=== PATIENT | male | born 1985 | race African-American/Black ===

== ENCOUNTER 2017-07-03 19:12 | Emergency (ER) | payer OTHER ==
--- NOTE | 2017-07-03 19:25 | PDOC ---
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 States that after he took that awkward step he has a sharp right inguinal pain with certain right leg movements. Denies mass, abdominal pain, testicular pain, fevers, chills, nausea , vomiting, diarrhea, cough, chest pain, or other sick symptoms. He took no medication for this pain and came straight to the ED. 07/03/17 19:44 Past History - Past Medical History Allergies/Adverse Reactions: Allergies Allergy/AdvReac Type Severity Reaction Status Date / Time apple Allergy Itching Verified 07/03/17 19:31 Home Medications: Ambulatory Orders Ibuprofen [Motrin -] 600 mg PO QID PRN #20 tablet 07/03/17 - Suicide/Smoking/Psychosocial Hx Smoking Status: No Smoking History: Never smoked Number of Cigarettes Smoked Daily: 0 Hx Alcohol Use: No Drug/Substance Use Hx: No Substance Use Type: None Review of Systems - Review of Systems Constitutional: No: Chills, Diaphoresis, Fever HEENTM: No: Blurred Vision Respiratory: No: Cough, Orthopnea, Shortness of Breath, Wheezing Cardiac (ROS): No: Chest Pain, Edema, Lightheadedness ABD/GI: No: Diarrhea, Nausea, Poor Appetite, Vomiting : No: Dysuria, Discharge, Hematuria, Incontinence, Pain, Urgency, Testicular Pain Neurological: No: Numbness, Paresthesia *Physical Exam - Physical Exam General Appearance: Yes: Nourished, Appropriately Dressed. No: Apparent Distress HEENT: positive: EOMI, FLY, Normal ENT Inspection, Normal Voice Neck: positive: Trachea midline, Normal Thyroid, Supple. negative: Tender, Rigid Respiratory/Chest: positive: Lungs Clear, Normal Breath Sounds. negative: Chest Tender, Respiratory Distress Cardiovascular: positive: Regular Rhythm, Regular Rate. negative: Edema, Murmur Gastrointestinal/Abdominal: positive: Normal Bowel Sounds, Flat, Soft. negative : Tender, Increased Bowel Sounds, Decreased BS, Protuberent, Hernia, Mass Male Genitalia: positive: normal genitalia Extremity: positive: Normal Capillary Refill, Normal Inspection. 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 No testicular tenderness, swelling, or sign of hernia. Given 800 mg once po ibuprofen here and will write for 20 pills of 600 mg Q6 and referral for umair who he has seen in the past if the pain does not improve. 07/03/17 19:50 *DC/Admit/Observation/Transfer Diagnosis at time of Disposition: Strain of muscle of right groin region - Discharge Dispostion Disposition: HOME Condition at time of disposition: Good Admit: No - Prescriptions Prescriptions: Ibuprofen [Motrin -] 600 mg PO QID PRN #20 tablet PRN Reason: Pain Level 1 - 3 - Referrals - Patient Instructions Printed Discharge Instructions: DI for Muscle Strain Additional Instructions: You likely have a strain of your right inguinal ligament or muscle around that same area. It should get better with rest, ibuprofen, and heat. Please follow up with Dr. Aguirre next week. Please return to the ED if the pain gets worse despite medication. - Post Discharge Activity
[2017-07-03 19:31] VITALS: BP 130/71; PULSE 100; TEMP 98.2; BMI 30.9
[2017-07-03] MEDS ORDERED: IBUPROFEN 400 MG TABLET (FP) PO ONE ×2 (19:43→19:51)
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
== END 2017-07-03 20:05 | disposition home or self-care (01) ==
LOC: JER 19:12
DX: S39.011A Strain of muscle, fascia and tendon of abdomen, initial encounter (principal); X50.1XXA Overexertion from prolonged static or awkward postures, initial encounter; Y93.89 Activity, other specified; Y92.098 Other place in other non-institutional residence as the place of occurrence of the external cause; Y99.0 Civilian activity done for income or pay
CPT/HCPCS: 99281-25

== ENCOUNTER 2018-03-29 10:00 | Emergency (ER) | payer OTHER ==
[2018-03-29 10:13] VITALS: BP 185/91; PULSE 67; TEMP 98.8; BMI 31.5
[2018-03-29] MEDS ORDERED: DIPHTH,PERTUSS(ACELL),TET 0.5 ML DISP.SYRIN IM ONE (10:23)
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
== END 2018-03-29 10:56 | disposition home or self-care (01) ==
LOC: JERFT 10:00
PROC: 3E0234Z Introduction of Serum, Toxoid and Vaccine into Muscle, Percutaneous Approach (ICD-10-PCS; principal; 2018-03-29)
PROC: 0HQFXZZ Repair Right Hand Skin, External Approach (ICD-10-PCS; 2018-03-29)
PROC: 3E0234Z Introduction of Serum, Toxoid and Vaccine into Muscle, Percutaneous Approach (ICD-10-PCS; 2018-03-29)
DX: S61.411A Laceration without foreign body of right hand, initial encounter (principal); V68.4XXA Person boarding or alighting a heavy transport vehicle injured in noncollision transport accident, initial encounter; Y93.89 Activity, other specified; Y99.0 Civilian activity done for income or pay; Y92.89 Other specified places as the place of occurrence of the external cause
CPT/HCPCS: 90715; 99281-25

== ENCOUNTER 2018-06-17 13:25 | Emergency (ER) | payer BC, OTHER ==
[2018-06-17 13:43] VITALS: BP 132/82; PULSE 69; TEMP 98.2; BMI 30.3
--- NOTE | 2018-06-17 14:49 | PDOC ---
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 States 4 days ago temperature max 101 but since then has resolved. States had prolonged general malaise and fatigue. Denies sore throat or earache pain or fevers currently. Has been using [id number] medications with some good results. Was concerned about persistent tiredness. States young daughter was ill with same type of thickness one week previous. Denies chest pain, palpitations, shortness of breath but states had some strange tingling sensation to his left arm spontaneously resolved. 06/17/18 14:49 06/17/18 15:17 Occurred: reports: last week Severity: reports: mild, moderate Past History - Travel Traveled outside of the country in the last 30 days: No Close contact w/someone who was outside of country & ill: No - Past Medical History Allergies/Adverse Reactions: Allergies Allergy/AdvReac Type Severity Reaction Status Date / Time apple Allergy Itching Verified 06/17/18 13:39 Home Medications: Ambulatory Orders NK [No Known Home Medication] 06/17/18 COPD: No Other medical history: DENIES. - Suicide/Smoking/Psychosocial Hx Smoking Status: No Smoking History: Never smoked Have you smoked in the past 12 months: No Number of Cigarettes Smoked Daily: 0 Hx Alcohol Use: No Drug/Substance Use Hx: No Substance Use Type: None Trauma Specific PMHX - Complaint Specific PMHX Back Injury: No Neck Injury: No Review of Systems - Review of Systems Able to Perform ROS?: Yes Is the patient limited Slovak proficient: Yes Constitutional: Yes: Symptoms Reported, See HPI, Chills, Fever, Malaise HEENTM: Yes: Symptoms Reported, See HPI, Nose Congestion. No: Throat Swelling Respiratory: Yes: Symptoms reported, See HPI, Cough ABD/GI: No: Symptoms Reported Musculoskeletal: Yes: Symptoms Reported, See HPI, Muscle Pain (left forearm) Neurological: Yes: See HPI. No: Symptoms reported, Headache, Numbness, Paresthesia All Other Systems: Reviewed and Negative *Physical Exam - Vital Signs Last Vital Signs Temp Pulse Resp BP Pulse Ox 98.2 F 69 18 132/82 96 06/17/18 13:39 06/17/18 13:39 06/17/18 13:39 06/17/18 13:39 06/17/18 13:39 - Physical Exam General Appearance: Yes: Nourished, Appropriately Dressed, Apparent Distress, Mild Distress HEENT: positive: FLY, TMs Normal, Pharynx Normal, Rhinorrhea Neck: positive: Supple, Lymphadenopathy (R), Lymphadenopathy (L). negative: Tender Respiratory/Chest: positive: Lungs Clear, Normal Breath Sounds. negative: Chest Tender Gastrointestinal/Abdominal: positive: Soft. 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 We'll continue conservative measures as there is no indication of bacterial infection and possible resolved influenza *DC/Admit/Observation/Transfer Diagnosis at time of Disposition: Upper respiratory infection, viral - Discharge Dispostion Disposition: HOME Condition at time of disposition: Stable Decision to Admit order: No - Referrals Referrals: Huang Cerda MD [Primary Care Provider] - - Patient Instructions Printed Discharge Instructions: DI for Viral Upper Respiratory Infection -- Adult Additional Instructions: Rest, drink lots of fluids: Teas, water, soups, Pedialyte Saltwater gargles Steamy showers/seem to face break up mucus Avoid contact with others until fevers and cough resolved Lots of handwashing and good hygiene Continue wkhb-eiu-[id number] medications for symptomatic relief Tylenol or Motrin for fever and pain Followup with private physician in one to 2 days as needed Return to emergency department for worsened symptoms, fevers, dehydration - Post Discharge Activity Forms/Work/School Notes: Back to Work
--- NOTE | 2018-06-18 12:53 | EKG ---
Test Reason : Blood Pressure : / mmHG Vent. Rate : 067 BPM Atrial Rate : 067 BPM P-R Int : 152 ms QRS Dur : 086 ms QT Int : 400 ms P-R-T Axes : 013 000 -01 degrees QTc Int : 422 ms NORMAL SINUS RHYTHM NORMAL ECG WHEN COMPARED WITH ECG OF 21-JAN-2018 10:36, NO SIGNIFICANT CHANGE WAS FOUND Confirmed by MD SALAS MOYSES ([id number]) on 06/18/2018 12:52:32 PM Referred By: Confirmed By:ELIO SALAS MD
== END 2018-06-17 15:33 | disposition home or self-care (01) ==
LOC: JERFT 13:25
DX: J06.9 Acute upper respiratory infection, unspecified (principal); B97.89 Other viral agents as the cause of diseases classified elsewhere
CPT/HCPCS: 93005; 93010; 99281-25

== ENCOUNTER 2019-01-15 20:23 | Emergency (ER) | payer SELFPAY ==
[2019-01-15 20:28] VITALS: BP 122/89; PULSE 85; TEMP 98.2; BMI 29.0
[2019-01-15] MEDS ORDERED: IBUPROFEN 400 MG TABLET (FP) PO ONE ×2 (20:37→20:40)
--- NOTE | 2019-01-15 20:41 | PDOC ---
History of Present Illness - General Chief Complaint: Pain Stated Complaint: LEFT HAND UNJURY Time Seen by Provider: 01/15/19 20:31 History Source: Patient Exam Limitations: No Limitations Past History - Past Medical History Allergies/Adverse Reactions: Allergies Allergy/AdvReac Type Severity Reaction Status Date / Time apple Allergy Itching Verified 01/15/19 20:35 Home Medications: Ambulatory Orders Oxycodone HCl/Acetaminophen [Percocet 5-325 mg Tablet] 1 tab PO Q4H PRN #20 tablet MDD 6 01/15/19 COPD: No - Suicide/Smoking/Psychosocial Hx Smoking Status: No Smoking History: Never smoked Have you smoked in the past 12 months: No Number of Cigarettes Smoked Daily: 0 Hx Alcohol Use: No Drug/Substance Use Hx: No Substance Use Type: None Trauma Specific PMHX - Complaint Specific PMHX Back Injury: No Neck Injury: No *Physical Exam - Vital Signs Last Vital Signs Temp Pulse Resp BP Pulse Ox 98.2 F 85 20 122/89 100 01/15/19 20:24 01/15/19 20:24 01/15/19 20:24 01/15/19 20:24 01/15/19 20:24 - Physical Exam General Appearance: No: Apparent Distress Extremity: positive: Other (+swelling and TTP along lateral aspect of L hand, TTP along L 4th-5th MCP and metacarpals, no pain along L wrist, FROM of L wrist , no snuffbox tenderness, LUE neurovasculary intact) Integumentary: positive: Swelling. negative: Ecchymosis, Bruising Neurologic: positive: Alert, Normal Mood/Affect Procedures - Splinting Splint Location: Left: Hand Pre-Proc Neuro Vasc Exam: normal Hand-Made Type: orthoglass Splint Type: Yes: Ulnar Post-Proc Neuro Vasc Exam: normal Eugenio Bandage: yes ED Treatment Course - RADIOLOGY Radiology Studies Ordered: Category Date Time Status HAND- LEFT [RAD] Stat Radiology 01/15/19 20:37 Ordered Medical Decision Making - Medical Decision Making 33 y/o YFD, no sig pmh presents with L hand trauma from today. Was trying to open an engine door (states the knob can be tricky to open) and while trying to yank it open, hit this L hand against back of wall. Denies other trauma, numbness, tingling Plan: Motrin, L hand xray to r/o fracture 01/15/19 20:39 L hand xray shows 5th metacarpal head fracture Ulnar gutter splint placed 01/15/19 21:21 *DC/Admit/Observation/Transfer Diagnosis at time of Disposition: Fracture, metacarpal Qualifiers: Encounter type: initial encounter Metacarpal bone: fifth Fracture type: closed Metacarpal location: other portion of metacarpal Fracture alignment: displaced Laterality: left Qualified Code(s): S62.397A - Other fracture of fifth metacarpal bone, left hand, initial encounter for closed fracture - Discharge Dispostion Disposition: HOME Condition at time of disposition: Stable - Prescriptions Prescriptions: Oxycodone HCl/Acetaminophen [Percocet 5-325 mg Tablet] 1 tab PO Q4H PRN #20 tablet MDD 6 PRN Reason: Severe Pain - Referrals Referrals: Glen Camarillo MD [Staff Physician] - Call tomorrow - Patient Instructions Printed Discharge Instructions: DI for Boxer's Fracture Additional Instructions: Thank you for choosing [facility]. It was a pleasure taking care of you. You may take Motrin 600 mg every 6 hours by mouth as needed for mild to moderate pain. Take Motrin with food. Take Percocet as needed for severe pain. This medication can make you constipated for which you may take over the counter Senna tablets as needed. This medication can also make you drowsy so please be cautious with driving or performing heavy physical work. Keep splint dry Follow-up with orthopedic doctor tomorrow Return to the Emergency Department if your symptoms worsen or persist or have other concerning symptoms. - Post Discharge Activity
== END 2019-01-15 21:32 | disposition home or self-care (01) ==
LOC: JERFT 20:23
PROC: 2W3DX1Z Immobilization of Left Lower Arm using Splint (ICD-10-PCS; principal; 2019-01-15)
DX: S62.397A Other fracture of fifth metacarpal bone, left hand, initial encounter for closed fracture (principal); W22.8XXA Striking against or struck by other objects, initial encounter; Y93.89 Activity, other specified; Y92.89 Other specified places as the place of occurrence of the external cause; Y99.0 Civilian activity done for income or pay
CPT/HCPCS: 73130-TC-LT-FY; 99282-25

== ENCOUNTER 2020-02-28 20:43 | Emergency (ER) | payer BC ==
[2020-02-28 20:57] VITALS: BP 138/92; PULSE 73; TEMP 98; BMI 30.3
--- OUTSIDE RECORDS SUMMARY | 2020-02-28 20:58 | XMS ---
:1985 Author Organization [facility] Care Team Providers Name Role Phone .ALISON Brennan, LUIS Unavailable Unavailable Re-disclosure Warning The records that you are about to access may contain information from federally- assisted alcohol or drug abuse programs. If such information is present, then the following federally mandated warning applies: This information has been disclosed to you from records protected by federal confidentiality rules (42 CFR part 2). The federal rules prohibit you from making any further disclosure of this information unless further disclosure is expressly permitted by the written consent of the person to whom it pertains or as otherwise permitted by 42 CFR part 2. A general authorization for the release of medical or other information is NOT sufficient for this purpose. The Federal rules restrict any use of the information to criminally investigate or prosecute any alcohol or drug abuse patient.The records that you are about to access may contain highly sensitive health information, the redisclosure of which is protected by Article 27-F of the [facility] Public Health law. If you continue you may haveaccess to information: Regarding HIV / AIDS; Provided by facilities licensed or operated by the [facility] Office of Mental Health; or Provided by the [facility] Office for People With Developmental Disabilities. If such information is present, then the following [facility] mandated warning applies: This information has been disclosed to you from confidential records which are protected by state law. State law prohibits you from making any further disclosure of this information without the specific written consent of the person to whom it pertains, or as otherwise permitted by law. Any unauthorized further disclosure in violation of state law may result in a fine or long term sentence or both. A general authorization for the release of medical or other information is NOT sufficient authorization for further disclosure. Encounters Encounter Providers Location Date Indications Data Source(s ) Outpatient Attender: LUIS Roberts 10/09/2019 [facility]imm[facility] 11:21:00 [facility] LAdmitter: LUIS SMITH LReferrer: LUIS Brennan Insurance Providers Payer name Policy type Policy ID Covered Covered democrat's Policy P karolyn / Coverage democrat ID relationship to Silver Inf ormation type silver BC PPO [id number] SP [id number] O BLUE CROSS O [id number] 01 [id number] SELF PAY SP INSURANCE Problems, Conditions, and Diagnoses Code Display Name Description Problem Type Effective Data Sour ce(s) Dates Z20.828 Contact with and CONTACT W AND Diagnosis 10/09/2019 [facility] (suspected) EXPOSURE TO OTH 11:21:00 AM Medical Center exposure to other VIRAL COMMUNICABLE EDT viral communicable DISEASES diseases Results ID Date Data Source [id number] 10/09/2019 11:27:00 AM EDT [facility] Name Value Range Interpretation Code Description Data Ana rce(s) Supporting Document(s ) COV2 [facility] This lab [facility] and reported by [facility]. ID Date Data Source [id number] 10/09/2019 11:27:00 AM EDT [facility] Name Value Range Interpretation Description Data Sup porting Code Source(s) Document(s ) UNK Not Detected <content [facility] styleCode="[facility] ">SARS-COV-2 Center RNA </content>Not Detected <content styleCode="Ital ics"> (Not Detected )</content> Procedure Social History Code Duration Value Status Description Data Source(s ) Smoking Unknown if ever completed Unknown if ever Jose Carlos smoked smoked [facility]
--- NOTE | 2020-02-28 22:23 | PDOC ---
History of Present Illness - General Chief Complaint: Sore Throat Stated Complaint: SORE THROAT Time Seen by Provider: 02/28/20 20:58 - History of Present Illness Initial Comments: 02/28/20 22:21 35-year-old male no comorbidities presents for sore throat x2 days no systemic symptoms states he has a feeling of something stuck in his throat. No retained foreign bodies or concern for food being stuck there it is just the feeling he describes. Past History - Medical History Allergies/Adverse Reactions: Allergies Allergy/AdvReac Type Severity Reaction Status Date / Time apple Allergy Itching Verified 01/15/19 20:35 Home Medications: Ambulatory Orders Oxycodone HCl/Acetaminophen [Percocet 5-325 mg Tablet] 1 tab PO Q4H PRN #20 tablet MDD 6 01/15/19 COPD: No - Psycho-Social/Smoking History Smoking Status: No Smoking History: Current some day smoker Have you smoked in the past 12 months: Yes Number of Cigarettes Smoked Daily: 0 Information on smoking cessation initiated: Yes - Substance Abuse Hx (Audit-C & DAST Scrn) How often the patient has a drink containing alcohol: Never Score: In Men: 4 or > Positive; In Women: 3 or > Positive: 0 Screen Result (Pos requires Nsg. Audit-10AR): Negative Review of Systems - Review of Systems Constitutional: No: Fever HEENTM: Yes: Throat Pain *Physical Exam - Vital Signs Last Vital Signs Temp Pulse Resp BP Pulse Ox 98.0 F 73 20 138/92 97 02/28/20 20:53 02/28/20 20:53 02/28/20 20:53 02/28/20 20:53 02/28/20 20:53 - Physical Exam 02/28/20 22:22 HEAD: NC/AT EYES: Conjuntiva clear Ears: Canals and TM's normal NOSE: No d/c THROAT: Moist mucous membrances, oral pharanx erythemic without exudate, uvula midline NECK: Supple without adenopathy CARDIAC: S1 S2 LUNGS: CTA Full and Equal breath sounds ABDOMEN: Soft NT ND MS: Full ROM in all joints without edema NEUROLOGIC: No gross sensory or motor deficits, NVID SKIN: Normal color and temperature no lesions or rashes ED Treatment Course - RADIOLOGY Radiology Studies Ordered: Category Date Time Status NECK SOFT TISSUE [RAD] Stat Radiology 02/28/20 21:02 Taken Medical Decision Making - Medical Decision Making 02/28/20 22:22 Normal soft tissue of the neck and negative strep test most likely a viral pharyngitis will have patient follow-up with ENT I have reviewed the pathophysiology with the patient. They are in agreement with the treatment plan all questions were answered to their satisfaction. Understanding for follow-up without fail was also conveyed to the patient. Again they are in agreement. Discharge - Discharge Information Problems reviewed: Yes Clinical Impression/Diagnosis: Sore throat Condition: Stable Disposition: HOME - Admission No - Follow up/Referral Referrals: Kev Edwards MD [Staff Physician] - - Patient Discharge Instructions Additional Instructions: Tylenol and Motrin for any discomfort. Rapid strep is negative. Culture was sent. Your soft tissue x-ray of the neck did not show any foreign bodies. Return to the emergency room for worsening symptoms at any time and without fail follow-up with ear nose and throat doctor in 1 to 2 days for further evaluation and treatment options. - Post Discharge Activity
== END 2020-02-28 23:06 | disposition home or self-care (01) ==
LOC: JERFT 20:43
DX: R07.0 Pain in throat (principal)
CPT/HCPCS: 70360-TC-FY; 87070; 87077; 87880; 99284-25

== ENCOUNTER 2020-07-25 14:57 | Emergency (ER) | payer BC, OTHER ==
[2020-07-25 15:29] VITALS: BP 122/75; PULSE 80; TEMP 98.1; BMI 30.9
[2020-07-25] MEDS ORDERED: IBUPROFEN 400 MG TABLET (FP) PO ONE ×2 (15:47→15:53)
[2020-07-25] MEDS ORDERED: METHOCARBAMOL 500 MG TABLET PO ONE (15:47)
[2020-07-25] MEDS ORDERED: METHOCARBAMOL 500 MG TABLET ONE (15:52)
== END 2020-07-25 15:56 | disposition home or self-care (01) ==
LOC: JERFT 14:57 → JER 14:57 → JERFT 15:56
DX: S39.012A Strain of muscle, fascia and tendon of lower back, initial encounter (principal)
CPT/HCPCS: 99283-25

== ENCOUNTER 2020-07-30 18:05 | Emergency (ER) | payer BC | END 2020-07-30 18:12 | disposition home or self-care (01) | LOC: JVIRT 18:05 | DX: Z11.52 Encounter for screening for COVID-19 (principal) | CPT/HCPCS: C9803; G2251-GT; U0003 ==

== ENCOUNTER 2020-08-05 10:52 | Emergency (ER) | payer BC | END 2020-08-05 12:24 | disposition home or self-care (01) | LOC: JVIRT 10:52 | DX: Z20.822 Contact with and (suspected) exposure to COVID-19 (principal) | CPT/HCPCS: 36415; 86769; C9803; G2251-GT; U0003 ==

== ENCOUNTER 2021-02-19 23:29 | Emergency (ER) | payer OTHER ==
[2021-02-19 23:43] VITALS: BP 125/82; PULSE 87; TEMP 98; BMI 30.3
[2021-02-20] MEDS ORDERED: LIDOCAINE 5% TOPICAL PATCH TP ONE (00:30)
[2021-02-20] MEDS ORDERED: KETOROLAC TROMETHAMINE 30 MG/1 ML VIAL IM ONE (00:30)
[2021-02-20] MEDS ORDERED: KETOROLAC TROMETHAMINE 30 MG/1 ML VIAL ONE (00:37)
[2021-02-20] MEDS ORDERED: LIDOCAINE 5% TOPICAL PATCH ONE (00:37)
[2021-02-20] MEDS ORDERED: LIDOCAINE PATCH REMOVAL MC SCH (22:00)
== END 2021-02-20 00:48 | disposition home or self-care (01) ==
LOC: JER 23:29
PROC: 3E0233Z Introduction of Anti-inflammatory into Muscle, Percutaneous Approach (ICD-10-PCS; principal; 2021-02-20)
DX: S39.012A Strain of muscle, fascia and tendon of lower back, initial encounter (principal); X50.0XXA Overexertion from strenuous movement or load, initial encounter; Y92.9 Unspecified place or not applicable
CPT/HCPCS: 99283-25

== ENCOUNTER 2021-10-04 20:10 | Emergency (ER) | payer OTHER ==
[2021-10-04 20:19] VITALS: BP 146/72; PULSE 72; TEMP 98.6; BMI 30.9
[2021-10-04] MEDS ORDERED: KETOROLAC TROMETHAMINE 30 MG/1 ML VIAL IM ONE (20:48)
[2021-10-04] MEDS ORDERED: KETOROLAC TROMETHAMINE 30 MG/1 ML VIAL ONE (20:55)
== END 2021-10-04 21:13 | disposition home or self-care (01) ==
LOC: JERFT 20:10
PROC: 3E0234Z Introduction of Serum, Toxoid and Vaccine into Muscle, Percutaneous Approach (ICD-10-PCS; principal; 2021-10-04)
DX: M54.50 Low back pain, unspecified (principal)
CPT/HCPCS: 99284-25

== ENCOUNTER 2022-01-16 17:39 | Emergency (ER) | payer BC, OTHER ==
[2022-01-16 18:19] VITALS: BP 124/81; PULSE 76; RESP 18; TEMP 97; BMI 30.9
[2022-01-16 18:47] LABS: HEMATOCRIT 43.6 % (35.4-49); HEMOGLOBIN 14.7 GM/dL (11.7-16.9); MCHC 33.8 g/dl (32.0-35.9); MEAN CELL VOLUME 91.8 fl (80-96); MEAN PLT VOLUME 8.3 fl (7.5-11.1); MONO % 11.4 % (3.8-10.2); NEUT % 46.6 % (42.8-82.8); PLATELET COUNT 240 10^3/uL (134-434); RBC 4.75 M/mm3 (4.00-5.60); RDW 12.9 % (11.9-15.9)
[2022-01-16 19:03] LABS: ALBUMIN 4.2 g/dl (3.4-5.0); BLOOD UREA NITROGEN 9.8 mg/dL (7-18); CALCIUM 9.2 mg/dL (8.5-10.1)
[2022-01-16 19:06] LABS: CREATININE 0.8 mg/dL (0.55-1.3)
[2022-01-16 19:08] LABS: BILIRUBIN,TOTAL 0.3 mg/dL (0.2-1); TOT PROT 7.7 g/dl (6.4-8.2)
[2022-01-16] MEDS ORDERED: CEFTRIAXONE 500 MG in DEXTROSE 5%-WATER - 50 ML IVPB ONE (19:21)
[2022-01-16] MEDS ORDERED: cefTRIAXone SODIUM 1 GM VIAL ONE (20:07)
[2022-01-16] MEDS ORDERED: CEFTRIAXONE 1,000 MG in DEXTROSE 5%-WATER - 50 ML IVPB ONE (20:10)
[2022-01-16 20:11] LABS: PH,URINE 6.5 (5.0-8.0); URINE APPEARANCE CLEAR; URINE BILIRUBIN NEGATIVE (NEGATIVE); URINE COLOR YELLOW; URINE GLUCOSE (UA) NEGATIVE (NEGATIVE); URINE KETONE NEGATIVE (NEGATIVE); URINE LEUK ESTERASE NEGATIVE (NEGATIVE); URINE NITRITE NEGATIVE (NEGATIVE); URINE PROTEIN NEGATIVE (NEGATIVE); URINE UROBILINOGEN 0.2 mg/dL (0.2-1.0)
== END 2022-01-16 20:59 | disposition home or self-care (01) ==
LOC: JER 17:39
DX: N45.1 Epididymitis (principal)
CPT/HCPCS: 36415; 76870-TC; 80053; 81003; 85025; 87086; 87491; 87591; 99284-25

== ENCOUNTER 2022-07-05 11:35 | Emergency (ER) | payer OTHER, BC ==
[2022-07-05 11:45] VITALS: BP 120/81; PULSE 69; RESP 18; TEMP 97.6; BMI 31.6
[2022-07-05] MEDS ORDERED: ACETAMINOPHEN 500 MG TABLET (FP) PO ONE (12:48)
[2022-07-05] MEDS ORDERED: ACETAMINOPHEN 500 MG TABLET (FP) ONE (12:50)
== END 2022-07-05 13:12 | disposition home or self-care (01) ==
LOC: JERFT 11:35
DX: S61.411A Laceration without foreign body of right hand, initial encounter (principal); W26.0XXA Contact with knife, initial encounter
CPT/HCPCS: 99283-25

== ENCOUNTER 2022-07-13 11:51 | Emergency (ER) | payer BC, OTHER ==
[2022-07-13 11:57] VITALS: BP 131/77; PULSE 71; RESP 17; TEMP 98.1; BMI 31.6
== END 2022-07-13 12:35 | disposition home or self-care (01) ==
LOC: JERFT 11:51
DX: S61.411A Laceration without foreign body of right hand, initial encounter (principal); Y99.9 Unspecified external cause status; Z48.02 Encounter for removal of sutures
CPT/HCPCS: 99281-25

== ENCOUNTER 2022-09-17 18:22 | Emergency (ER) | payer OTHER ==
[2022-09-17 18:31] VITALS: BP 124/83; PULSE 64; RESP 20; TEMP 98.3; BMI 30.3
[2022-09-17] MEDS ORDERED: NAPROXEN 500 MG TABLET PO ONE (19:21)
[2022-09-17] MEDS ORDERED: NAPROXEN 500 MG TABLET ONE (19:29)
== END 2022-09-17 19:30 | disposition home or self-care (01) ==
LOC: JERFT 18:22 → JER 18:22 → JERFT 19:30
DX: M54.6 Pain in thoracic spine (principal); X58.XXXA Exposure to other specified factors, initial encounter; Y99.0 Civilian activity done for income or pay
CPT/HCPCS: 99283-25

== ENCOUNTER 2022-12-19 10:05 | Emergency (ER) | payer OTHER ==
[2022-12-19 10:33] VITALS: BP 127/79; PULSE 80; RESP 18; TEMP 98; BMI 30.3
[2022-12-19] MEDS ORDERED: KETOROLAC TROMETHAMINE 30 MG/1 ML VIAL IM ONE (10:35)
[2022-12-19] MEDS ORDERED: KETOROLAC TROMETHAMINE 30 MG/1 ML VIAL ONE (10:38)
== END 2022-12-19 10:42 | disposition home or self-care (01) ==
LOC: JER 10:05 → JERFT 10:05
PROC: 3E0233Z Introduction of Anti-inflammatory into Muscle, Percutaneous Approach (ICD-10-PCS; principal; 2022-12-19)
DX: M54.50 Low back pain, unspecified (principal)
CPT/HCPCS: 99284-25

== ENCOUNTER 2023-03-16 10:30 | Emergency (ER) | payer OTHER ==
[2023-03-16 11:07] VITALS: BP 137/87; PULSE 65; RESP 18; TEMP 98.6; BMI 30.3
[2023-03-16] MEDS ORDERED: LIDOCAINE 5% TOPICAL PATCH TP ONE (11:21)
[2023-03-16] MEDS ORDERED: KETOROLAC TROMETHAMINE 30 MG/1 ML VIAL IM ONE (11:21)
[2023-03-16] MEDS ORDERED: MAG HYDROX/AL HYDROX/SIMETH 30 ML UNIT-DOSE CUP PO ONE (11:22)
[2023-03-16] MEDS ORDERED: LIDOCAINE 5% TOPICAL PATCH ONE (11:29)
[2023-03-16] MEDS ORDERED: KETOROLAC TROMETHAMINE 30 MG/1 ML VIAL ONE (11:29)
[2023-03-16] MEDS ORDERED: MAG HYDROX/AL HYDROX/SIMETH 30 ML UNIT-DOSE CUP ONE (11:29)
[2023-03-16] MEDS ORDERED: LIDOCAINE PATCH REMOVAL MC SCH (22:00)
== END 2023-03-16 11:59 | disposition home or self-care (01) ==
LOC: JERFT 10:30
PROC: 3E0233Z Introduction of Anti-inflammatory into Muscle, Percutaneous Approach (ICD-10-PCS; principal; 2023-03-16)
DX: M54.50 Low back pain, unspecified (principal); M54.2 Cervicalgia; S39.012A Strain of muscle, fascia and tendon of lower back, initial encounter; X50.0XXA Overexertion from strenuous movement or load, initial encounter; Y99.0 Civilian activity done for income or pay
CPT/HCPCS: 99284-25

== ENCOUNTER 2024-01-28 09:27 | Emergency (ER) | payer OTHER ==
[2024-01-28 09:36] VITALS: BP 150/97; PULSE 85; RESP 18; TEMP 98.6; BMI 28.5
== END 2024-01-28 11:02 | disposition home or self-care (01) ==
LOC: JERFT 09:27 → JER 09:27 → JERFT 11:02
DX: S39.012A Strain of muscle, fascia and tendon of lower back, initial encounter (principal); X50.1XXA Overexertion from prolonged static or awkward postures, initial encounter
CPT/HCPCS: 99283-25

== ENCOUNTER 2024-09-03 16:25 | Emergency (ER) | payer OTHER ==
[2024-09-03 16:36] VITALS: BP 135/91; PULSE 64; RESP 18; TEMP 98.6; BMI 29.8
[2024-09-03 18:12] LABS: ABSOLUTE IMMATURE GRANULOCYTES 0.01 x10^3/uL (0.0-0.031); BASOPHILS # 0.06 x10^3/uL (0.01-0.08); EOSINOPHIL % 1.4 % (0.8-7.0); EOSINOPHILS # 0.07 x10^3/uL (0.04-0.54); HEMATOCRIT 48.7 % (40.1-51.0); HEMOGLOBIN 15.8 g/dL (13.7-17.5); MCHC 32.4 g/dl (32.3-36.5); MEAN CELL VOLUME 94.6 fl (79.0-92.2); MEAN PLT VOLUME 10.5 fl (9.4-12.4); MONOCYTE # 0.67 x10^3/uL (0.30-0.82); MONOCYTE % 13.7 % (5.3-12.2); PLATELET COUNT # 228 x10^3/uL (163-337); RDW 11.9 % (12.0-15.6)
[2024-09-03 18:20] LABS: INR 1.05 (0.83-1.09); PROTHROMBIN TIME (PATIENT) 11.4 SEC (9.7-13.0)
[2024-09-03 18:23] LABS: ACTIVATED PTT 37.5 SECONDS (25.2-36.5)
[2024-09-03 18:53] LABS: CALCIUM 9.1 mg/dL (8.5-10.1)
[2024-09-03 18:54] LABS: ALBUMIN 4.3 g/dl (3.4-5.0); BLOOD UREA NITROGEN 11.7 mg/dL (7-18)
[2024-09-03 18:57] LABS: CREATININE 0.9 mg/dL (0.55-1.3)
[2024-09-03 18:58] LABS: BILIRUBIN,TOTAL 0.7 mg/dL (0.2-1)
[2024-09-03 18:59] LABS: TOT PROT 7.7 g/dl (6.4-8.2)
[2024-09-03 19:47] LABS: HIV INTERPRETATION NEGATIVE (NEGATIVE)
[2024-09-03 19:48] LABS: HCV DIAGNOSTIC IN-HOUSE W/RFLX NON-REACTIVE (NONREACTIVE)
[2024-09-03 20:38] LABS: PH,URINE 5.5 (5.0-8.0); URINE APPEARANCE CLEAR; URINE BILIRUBIN NEGATIVE (NEGATIVE); URINE COLOR YELLOW; URINE GLUCOSE (UA) NEGATIVE (NEGATIVE); URINE KETONE NEGATIVE (NEGATIVE); URINE LEUK ESTERASE NEGATIVE (NEGATIVE); URINE NITRITE NEGATIVE (NEGATIVE); URINE PROTEIN NEGATIVE (NEGATIVE); URINE UROBILINOGEN 0.2 mg/dL (0.2-1.0)
== END 2024-09-03 20:30 | disposition home or self-care (01) ==
LOC: JER 16:25
DX: R10.31 Right lower quadrant pain (principal); K52.9 Noninfective gastroenteritis and colitis, unspecified
CPT/HCPCS: 36415; 74177-TC; 80053; 81003; 85025; 85610; 85730; 86803; 86850; 86900; 86901; 87086; 87389; 99285-25; Q9967